=== PATIENT | female | born 1975 | race Hispanic/Latino ===

== ENCOUNTER 2018-05-19 19:54 | Emergency (ER) | payer OTHER ==
[2018-05-19] MEDS ORDERED: ONDANSETRON 4 MG/2 ML VIAL ONE (21:08)
[2018-05-19] MEDS ORDERED: MORPHINE 4 MG/ML SYR ONE ×2 (21:08→23:56)
[2018-05-19] MEDS ORDERED: NA CHLORIDE 0.9% 1,000 ML ONE (21:08)
[2018-05-19 21:33] LABS: Albumin 3.5 g/dL (3.4-5.0); Bilirubin Direct 2.1 mg/dL (0-0.2); Bilirubin Total 3.1 mg/dL (0.2-1.0); Potassium 3.7 mmol/L (3.5-5.1); Protein, Total 6.8 g/dL (6.4-8.2)
[2018-05-19 21:37] LABS: Absolute Lymphocytes (CBC) 0.4 K/uL (0.7-4.9); Absolute Monocytes 0.4 K/uL (0.1-1.3); Absolute Neutrophil 9.2 K/uL (1.8-8.0); Basophils % 0.3 % (0-1.3); Eosinophils % 0.2 % (0-4.4); Hematocrit 35.7 % (36.0-45.0); Lymphocytes % 4.4 % (15.3-44.8); MPV 8.8 fL (7.6-11.3); Monocytes % 4.4 % (3.3-12.3); RBC Red Blood Cell Count 4.24 M/uL (3.86-4.86)
[2018-05-19 23:28] LABS: Blood Morphology Comment NOT SEEN (NOT SEEN); Platelet Estimate ADEQ
[2018-05-19 23:43] LABS: Urine Bacteria <20 /HPF (<20); Urine Culture Reflex Order NOT NEEDED; Urine RBC <5 /HPF (NONE SEEN)
[2018-05-19 23:55] LABS: Urine Blood NEGATIVE (NEG); Urine Glucose NEGATIVE (NEG); Urine Protein NEGATIVE (NEG); Urine pH 7.5 (5.0-7.0)
[2018-05-19] MEDS ORDERED: METRONIDAZOLE 500mg IVPB 500 MG/100 ML BAG IV ONE (23:56)
[2018-05-20] MEDS ORDERED: CEFTRIAXONE/SWI 1gm 1 GM/10 ML SYR ONE
--- NOTE | 2018-05-20 00:44 | EDPHYS ---
Physician Documentation [facility] Name: Bev Samuel Age: 43 yrs Sex: Female : 1975 Arrival Date: 05/19/2018 Time: 19:58 Bed 23 Private MD: ED Physician Nicholas Warren HPI: 05/19 23:58 This 43 yrs old Female presents to ER via Ambulatory with complaints of jr8 Abdominal Pain, Nausea/Vomiting. 23:58 The patient presents with abdominal pain in the upper abdomen. Onset: The jr8 symptoms/episode began/occurred acutely, yesterday, and became worse and became persistent. The symptoms do not radiate. Associated signs and symptoms: Pertinent positives: nausea. The symptoms are described as stabbing. Modifying factors: The symptoms are alleviated by nothing, the symptoms are aggravated by nothing. Severity of pain: At its worst the pain was moderate in the emergency department the pain is unchanged. The patient has not experienced similar symptoms in the past. The patient has not recently seen a physician. PROOFER: 20:20 LMP 05/01/2018 ch Historical: - Allergies: 20:20 No Known Allergies; ch - PMHx: 20:20 Ovarian cyst; ch - Immunization history:: Adult Immunizations up to date, Flu vaccine is not up to date. Patient has never been vaccinated. - Social history:: Smoking status: Patient uses tobacco products, smokes one-half pack cigarettes per day. - Ebola Screening: : Patient negative for fever greater than or equal to 101.5 degrees Fahrenheit, and additional compatible Ebola Virus Disease symptoms Patient denies exposure to infectious person Patient denies travel to an Ebola-affected area in the 21 days before illness onset No symptoms or risks identified at this time. ROS: 23:58 Eyes: Negative for injury, pain, redness, and discharge, ENT: Negative for injury, jr8 pain, and discharge, Neck: Negative for injury, pain, and swelling, Cardiovascular: Negative for chest pain, palpitations, and edema, Respiratory: Negative for shortness of breath, cough, wheezing, and pleuritic chest pain, Back: Negative for injury and pain, MS/Extremity: Negative for injury and deformity, Skin: Negative for injury, rash, and discoloration, Neuro: Negative for headache, weakness, numbness, tingling, and seizure. 23:58 Abdomen/GI: Positive for abdominal pain, nausea, Negative for vomiting, diarrhea, abdominal distension, anorexia, dysphagia, hematemesis, black/tarry stool, rectal pain, rectal bleeding, bowel incontinence, flatulence. Exam: 23:58 Eyes: Pupils equal round and reactive to light, extra-ocular motions intact. Lids and jr8 lashes normal. Conjunctiva and sclera are non-icteric and not injected. Cornea within normal limits. Periorbital areas with no swelling, redness, or edema. ENT: Nares patent. No nasal discharge, no septal abnormalities noted. Tympanic membranes are normal and external auditory canals are clear. Oropharynx with no redness, swelling, or masses, exudates, or evidence of obstruction, uvula midline. Mucous membranes moist. Neck: Trachea midline, no thyromegaly or masses palpated, and no cervical lymphadenopathy. Supple, full range of motion without nuchal rigidity, or vertebral point tenderness. No Meningismus. Cardiovascular: Regular rate and rhythm with a normal S1 and S2. No gallops, murmurs, or rubs. Normal PMI, no JVD. No pulse deficits. Respiratory: Lungs have equal breath sounds bilaterally, clear to auscultation and percussion. No rales, rhonchi or wheezes noted. No increased work of breathing, no retractions or nasal flaring. Back: No spinal tenderness. No costovertebral tenderness. Full range of motion. Skin: Warm, dry with normal turgor. Normal color with no rashes, no lesions, and no evidence of cellulitis. MS/ Extremity: Pulses equal, no cyanosis. Neurovascular intact. Full, normal range of motion. Neuro: Awake and alert, GCS 15, oriented to person, place, time, and situation. Cranial nerves II-XII grossly intact. Motor strength 5/5 in all extremities. Sensory grossly intact. Cerebellar exam normal. Normal gait. 23:58 Abdomen/GI: Inspection: abdomen appears normal, Bowel sounds: active, all quadrants, Palpation: soft, in all quadrants, mild abdominal tenderness, in the right lower quadrant, moderate abdominal tenderness, in the right upper quadrant, voluntary guarding, is elicited in the right upper quadrant, involuntary guarding, is not appreciated, no appreciated organomegaly, Indicators: McBurney's point is not tender, Ruiz's sign is positive, Rovsing's sign is negative, Liver: tenderness, that is mild. Vital Signs: 20:20 BP 113 / 76; Pulse 82; Resp 16; Temp 99.5; Pulse Ox 99% on R/A; Weight 68.04 kg; Height ch 5 ft. 8 in. (172.72 cm); Pain 10/10; 21:28 BP 102 / 48; Pulse 72; Resp 18; Pulse Ox 98% on R/A; Pain 10/10; ed1 23:09 BP 119 / 72; Pulse 69; Resp 20; Pulse Ox 99% on R/A; Pain 10/10; ed1 05/20 00:21 BP 93 / 53; Pulse 61; Resp 19; Pulse Ox 99% on R/A; Pain 6/10; ed1 01:23 BP 107 / 67; Pulse 62; Resp 18; Pulse Ox 100% on R/A; mg2 05/19 20:20 Body Mass Index 22.81 (68.04 kg, 172.72 cm) ch MDM: 05/19 20:38 Patient medically screened. jr8 05/20 00:38 Data reviewed: vital signs, nurses notes, lab test result(s), radiologic studies, CT jr8 scan, ultrasound. Data interpreted: Pulse oximetry: on room air is 99 %. Interpretation: normal. Counseling: I had a detailed discussion with the patient and/or guardian regarding: the historical points, exam findings, and any diagnostic results supporting the discharge/admit diagnosis, lab results, radiology results, the need for further work-up and treatment in the hospital, the need to transfer to another facility, [facility] does not immediately have the required specialist. ED course: Consulted Dr. Loco about case. Declined to have patient further evaluated here due to the hepatic elevation and no GI cert occupational therapy asst tonight or throughout the weekend . ED course: [facility] contacted to see if they would except patient for further evaluation for possible cholecystitis with elevated LFT's. Medicine and General Surgery were both consulted and accepted to see patient . 05/19 20:52 Order name: Basic Metabolic Panel; Complete Time: 21:40 jr8 05/19 20:52 Order name: CBC with Diff; Complete Time: 23:37 8 05/19 20:52 Order name: Creatinine for Radiology; Complete Time: 22:12 jr8 05/19 20:52 Order name: Hepatic Function; Complete Time: 21:40 [facility] 05/19 20:52 Order name: Lipase; Complete Time: 21:40 [facility] 05/19 20:52 Order name: Urine Microscopic Only; Complete Time: 23:53 [facility] 05/19 21:39 Order name: US Abdomen Limited [facility] 05/19 21:41 Order name: Manual Differential; Complete Time: 23:37 EDMS 05/19 22:12 Order name: CT Abd/Pelvis - W/Contrast [facility] 05/19 22:38 Order name: Urine Dipstick--Ancillary (enter results); Complete Time: 23:59 [facility] 05/19 22:38 Order name: Urine --Ancillary (enter results); Complete Time: 23:59 [facility] 05/19 20:52 Order name: IV Saline Lock; Complete Time: 21:04 [facility] 05/19 20:52 Order name: Labs collected and sent; Complete Time: 21:04 [facility] 05/19 20:52 Order name: Urine Test (obtain specimen); Complete Time: 21:04 [facility] 05/19 20:52 Order name: Urine Dipstick-Ancillary (obtain specimen); Complete Time: 21:04 [facility] Administered Medications: 05/19 21:03 Drug: NS 0.9% 1000 ml Route: IV; Rate: 1000 ml; Site: left antecubital; ed1 05/20 02:47 Follow up: Response: No adverse reaction; IV Status: Completed infusion mg2 05/19 21:03 Drug: morphine 4 mg Route: IVP; Site: left antecubital; ed1 21:29 Follow up: Response: No adverse reaction; Pain is unchanged, physician notified ed1 21:03 Drug: Zofran 4 mg Route: IVP; Site: left antecubital; ed1 21:29 Follow up: Response: No adverse reaction; Nausea unchanged ed1 23:50 Not Given (Other Intervention Used): Mefoxin 1 grams IVPB once over 30 mins; (mix in 50 ed1 mL NS) 23:50 Drug: Flagyl 500 mg Volume: 100 ml; Route: IVPB; Rate: 200 ml/hr; Infused Over: 30 ed1 mins; Site: left antecubital; 05/20 00:20 Follow up: Response: No adverse reaction; IV Status: Completed infusion ed1 05/19 23:50 Drug: morphine 4 mg Route: IVP; Site: left antecubital; ed1 05/20 00:15 Follow up: Response: No adverse reaction; Pain is decreased ed1 00:20 Drug: Rocephin 1 grams Route: IV; Rate: calculated rate; Site: left antecubital; ed1 01:01 Follow up: Response: No adverse reaction; IV Status: Completed infusion ed1 01:00 Drug: NS 0.9% 1000 ml Route: IV; Rate: 1000 ml; Site: left antecubital; ed1 01:50 Follow up: Response: No adverse reaction; IV Status: Completed infusion mg2 01:50 Drug: Zofran 4 mg Route: IVP; Site: left antecubital; mg2 02:43 Follow up: Response: No adverse reaction; Marked relief of symptoms mg2 02:59 Drug: morphine 4 mg Route: IVP; Site: left antecubital; mg2 02:59 Follow up: Response: No adverse reaction; administered prior to transfer mg2 Disposition: 07:10 Co-signature as Attending Physician, Nicholas Warren MD I agree with the assessment and tw4 plan of care. Disposition: 05/20/18 00:44 Transfer ordered to [facility]. Diagnosis are Cholecystitis, Abnormal results of liver function studies. - Reason for transfer: Higher level of care. - Accepting physician is Dr. Cuellar . - Condition is Stable. - Problem is new. - Symptoms are unchanged. Signatures: Dispatcher [employer] EDMS Connie Potts RN RN Kasia Torres RN RN ed1 Adama Tabares PA PA jr8 Nicholas Warren MD MD tw4 Bashir Dunaway RN RN mg2 Corrections: (The following items were deleted from the chart) 01:13 00:44 05/20/2018 00:44 Transfer ordered to [facility]. Diagnosis is jr8 Cholecystitis; Abnormal results of liver function studies. Reason for transfer: Higher level of care. Accepting physician is [facility]. Condition is Stable. Problem is new. Symptoms are unchanged. jr8 03:03 01:13 05/20/2018 00:44 Transfer ordered to [facility]. Diagnosis is mg2 Cholecystitis; Abnormal results of liver function studies. Reason for transfer: Higher level of care. Accepting physician is Dr. Cuellar . Condition is Stable. Problem is new. Symptoms are unchanged. jr8
--- NOTE | 2018-05-20 00:44 | ER ---
Nurse's Notes [facility] Name: Bev Samuel Age: 43 yrs Sex: Female : 1975 Arrival Date: 05/19/2018 Time: 19:58 Bed 23 [facility] MD: Diagnosis: Cholecystitis;Abnormal results of liver function studies Presentation: 05/19 20:19 Presenting complaint: states: abdominal pain, vomiting, nausea, started at 0300 ch today after having sex. since then it has been getting worse. she went drinking with her friends last night. today she seems nayeli loopy, she seemed overly drunk for only having a couple drinks last night, and doesn't seem right. Transition of care: patient was not received from another setting of care. Onset of symptoms was May 19, 2018 at 03:00. Risk Assessment: Do you want to hurt yourself or someone else? Patient reports no desire to harm self or others. Initial Sepsis Screen: Does the patient meet any 2 criteria? No. Patient's initial sepsis screen is negative. Does the patient have a suspected source of infection? No. Patient's initial sepsis screen is negative. Care prior to arrival: None. 20:19 Method Of Arrival: Ambulatory 20:19 Acuity: SCOT 3 ch [employer]PER[employer]OR: 20:20 LMP 05/01/2018 Historical: - Allergies: 20:20 No Known Allergies; ch - PMHx: 20:20 Ovarian cyst; ch - Immunization history:: Adult Immunizations up to date, Flu vaccine is not up to date. Patient has never been vaccinated. - Social history:: Smoking status: Patient uses tobacco products, smokes one-half pack cigarettes per day. - Ebola Screening: : Patient negative for fever greater than or equal to 101.5 degrees Fahrenheit, and additional compatible Ebola Virus Disease symptoms Patient denies exposure to infectious person Patient denies travel to an Ebola-affected area in the 21 days before illness onset No symptoms or risks identified at this time. Screenin:43 Abuse screen: Denies threats or abuse. Denies injuries from another. Nutritional ed1 screening: No deficits noted. Tuberculosis screening: No symptoms or risk factors identified. Fall Risk None identified. Assessment: 20:43 General: Appears uncomfortable, Behavior is uncooperative. Pain: Complains of pain in ed1 abdomen Pain does not radiate. Pain currently is 10 out of 10 on a pain scale. Quality of pain is described as stabbing, Pain began gradually, around 0300 today Is continuous. Neuro: Level of Consciousness is awake, alert, obeys commands, Oriented to person, place, time, situation. Cardiovascular: Denies chest pain, Heart tones S1 S2 present. Respiratory: Airway is patent Respiratory effort is even, unlabored, Respiratory pattern is regular, symmetrical, Breath sounds are clear bilaterally. GI: Abdomen is non-distended, Bowel sounds present X 4 quads. Abd is soft X 4 quads Abdomen is tender to palpation X 4 quads. Reports nausea, vomiting. : Reports pain starting after intercourse. EENT: No signs and/or symptoms were reported regarding the EENT system. Derm: Skin is intact, is healthy with good turgor, Skin is dry, Skin is normal, Skin temperature is warm. Musculoskeletal: Circulation, motion, and sensation intact. Range of motion: intact in all extremities. 21:28 Reassessment: No changes from previously documented assessment. Patient and/or family ed1 updated on plan of care and expected duration. Pain level reassessed. Patient is alert, oriented x 3, equal unlabored respirations, skin warm/dry/pink. Patient states symptoms have not improved. 23:09 Reassessment: Patient appears in no apparent distress at this time. No changes from ed1 previously documented assessment. Patient and/or family updated on plan of care and expected duration. Pain level reassessed. Patient is alert, oriented x 3, equal unlabored respirations, skin warm/dry/pink. Patient states symptoms have not improved. 05/20 00:15 Reassessment: Patient appears in no apparent distress at this time. Patient and/or ed1 family updated on plan of care and expected duration. Pain level reassessed. Patient is alert, oriented x 3, equal unlabored respirations, skin warm/dry/pink. Patient states feeling better. Patient states symptoms have improved. Vital Signs: 05/19 20:20 BP 113 / 76; Pulse 82; Resp 16; Temp 99.5; Pulse Ox 99% on R/A; Weight 68.04 kg; Height ch 5 ft. 8 in. (172.72 cm); Pain 10/10; 21:28 BP 102 / 48; Pulse 72; Resp 18; Pulse Ox 98% on R/A; Pain 10/10; ed1 23:09 BP 119 / 72; Pulse 69; Resp 20; Pulse Ox 99% on R/A; Pain 10/10; ed1 03/23 00:21 BP 93 / 53; Pulse 61; Resp 19; Pulse Ox 99% on R/A; Pain 6/10; ed1 01:23 BP 107 / 67; Pulse 62; Resp 18; Pulse Ox 100% on R/A; mg2 05/19 20:20 Body Mass Index 22.81 (68.04 kg, 172.72 cm) ED Course: 05/19 19:58 Patient arrived in ED. es 20:20 Triage completed. 20:20 Arm band placed on left wrist. Patient placed in an exam room, on a stretcher. 20:38 Adama Tabares PA is PHCP. [facility] 20:38 Nicholas Warren MD is Attending Physician. [facility] 20:38 Kasia Torres RN is Primary Nurse. ed1 20:43 Patient has correct armband on for positive identification. Bed in low position. Call ed1 light in reach. Side rails up X2. Adult w/ patient. Pulse ox on. NIBP on. 20:46 Awaiting ED provider evaluation. ed1 21:15 Initial lab(s) drawn, by me, sent to lab. Urine collected: clean catch specimen, jumana lt1 colored. Inserted saline lock: 20 gauge in left antecubital area, using aseptic technique. 21:40 Notified Nurse Practitioner and/or Physician [place] [employer] Member of a critical lab result(s), AST ed1 419. 22:02 Ultrasound completed. Patient tolerated poorly. Patient moved back from ultrasound. cy 22:03 US Abdomen Limited In Process Unspecified. EDMS 22:[address] vm2 22:47 CT completed. Patient tolerated procedure well. Patient moved back from CT. vm2 22:53 CT Abd/Pelvis - W/Contrast In Process Unspecified. EDMS 03/ 00:15 Assisted to bathroom. ed1 01:14 Primary Nurse role handed off by Kasia Torres, RN ed1 01:23 No provider procedures requiring assistance completed. Patient transferred, IV remains mg2 in place. Administered Medications: 05/19 21:03 Drug: NS 0.9% 1000 ml Route: IV; Rate: 1000 ml; Site: left antecubital; ed1 05/20 02:47 Follow up: Response: No adverse reaction; IV Status: Completed infusion mg2 05/19 21:03 Drug: morphine 4 mg Route: IVP; Site: left antecubital; ed1 21:29 Follow up: Response: No adverse reaction; Pain is unchanged, physician notified ed1 21:03 Drug: Zofran 4 mg Route: IVP; Site: left antecubital; ed1 21:29 Follow up: Response: No adverse reaction; Nausea unchanged ed1 23:50 Not Given (Other Intervention Used): Mefoxin 1 grams IVPB once over 30 mins; (mix in 50 ed1 mL NS) 23:50 Drug: Flagyl 500 mg Volume: 100 ml; Route: IVPB; Rate: 200 ml/hr; Infused Over: 30 ed1 mins; Site: left antecubital; 05/20 00:20 Follow up: Response: No adverse reaction; IV Status: Completed infusion ed1 05/19 23:50 Drug: morphine 4 mg Route: IVP; Site: left antecubital; ed1 05/20 00:15 Follow up: Response: No adverse reaction; Pain is decreased ed1 00:20 Drug: Rocephin 1 grams Route: IV; Rate: calculated rate; Site: left antecubital; ed1 01:01 Follow up: Response: No adverse reaction; IV Status: Completed infusion ed1 01:00 Drug: NS 0.9% 1000 ml Route: IV; Rate: 1000 ml; Site: left antecubital; ed1 01:50 Follow up: Response: No adverse reaction; IV Status: Completed infusion mg2 01:50 Drug: Zofran 4 mg Route: IVP; Site: left antecubital; mg2 02:43 Follow up: Response: No adverse reaction; Marked relief of symptoms mg2 02:59 Drug: morphine 4 mg Route: IVP; Site: left antecubital; mg2 02:59 Follow up: Response: No adverse reaction; administered prior to transfer mg2 Intake: Outcome: 00:44 ER care complete, transfer ordered by MD. bauer 02:59 Transferred by ground EMS to [facility], Transfer form completed. mg2 02:59 Condition: stable 02:59 Instructed on the need for transfer, Demonstrated understanding of instructions. 03:03 Patient left the ED. mg2 Signatures: Dispatcher [employer] Connie Eason, RN RN ch Lucrecia Barnett Erika, RN RN ed1 Adama Tabares PA PA [facility] Greta Baires [facility] Varsha Andrews Michele, RN RN mg2 Mara Smith lt1 Corrections: (The following items were deleted from the chart) 05/19 20:23 20:19 Presenting complaint: states: abdominal pain, vomiting, nausea, started ch at 0300 today, getting worse. ch
[2018-05-20] MEDS ORDERED: NA CHLORIDE 0.9% 1,000 ML ONE (01:09)
[2018-05-20] MEDS ORDERED: ONDANSETRON 4 MG/2 ML VIAL ONE (01:55)
[2018-05-20] MEDS ORDERED: MORPHINE 4 MG/ML SYR ONE (03:05)
--- NOTE | 2018-05-20 09:10 | RAD REPORT ---
EXAM DESCRIPTION: US - Abdomen Exam Limited - 05/19/2018 10:01 pm CLINICAL HISTORY: Abdominal pain. COMPARISON: None. FINDINGS: The gallbladder is contracted with a mildly thickened wall. A gallstone is not seen The biliary tree is normal caliber. IMPRESSION: Contracted gallbladder with a mildly thickened wall. This can be a normal finding in a p atient not NPO. Chronic cholecystitis is another consideration
--- NOTE | 2018-05-22 11:00 | RAD REPORT ---
EXAM DESCRIPTION: CT - Abdomen Pelvis W Contrast - 05/19/2018 11:31 pm TECHNIQUE: Axial scans through the abdomen and pelvis with intravenous contrast including multiplana r computer reformations. Multiphase axial data sets. Total Dose Length Product: 932. This exam was pe rformed according to our departmental dose-optimization program, which includes automated exposure co ntrol, adjustment of the mA and/or kV according to patient size and/or use of iterative reconstructio n technique. Comparison studies: None. CLINICAL HISTORY: Iv only;Abd pain. FINDINGS: Liver: Size: Mildly enlarged, 18 cm. Parenchyma: No mass. Vasculature: Portal and hepatic veins: Normal. Spleen: Normal. Gallbladder: Contracted. Bile ducts: No biliary dilatation. Pancreas: normal. Adrenal glands: Normal. Kidneys: Normal. Bladder: Normal. Uterus: Position: Anteverted. Adnexa: Bilateral follicle cysts. Largest on the right measures 3 cm. Largest on the left measures 1. 7 cm. Breast practices recommendations: No follow-up imaging is recommended. Intestinal Tract: Stomach and duodenum: Unremarkable Small bowel: There is no small bowel dilatation. Large bowel: No large intestinal dilatation. Moderate colonic stool burden of. Appendix: Normal. Mesentery and Omentum: Normal. Retroperitoneum: Normal. Vasculature: Aorta: Normal. Iliac arteries: Normal. Free fluid: None. Musculoskeletal: Musculature, abdominal wall and soft tissues: Unremarkable. Skeletal structures: Degenerative disc disease including moderate lumbosacral narrowing. Lung bases: Clear. IMPRESSION: 1. Ovarian follicle cysts. 2. Nonspecific intestinal abnormality. 3. Contracted gallbladder.. Electronically signed by: Edgardo Owusu MD 05/19/2018 11:12 PM CDT Due to temporary technical issues with the PACS/Fluency reporting system, reports are being signed by the in house radiologist as a courtesy to ensure prompt reporting. The interpreting radiologist is f ully responsible for the content of the report.
== END 2018-05-20 03:03 | disposition short-term general hospital (02) ==
LOC: ER 19:54
DX: K81.9 Cholecystitis, unspecified (principal); R94.5 Abnormal results of liver function studies
CPT/HCPCS: 36415; 74177; 76705; 80048; 80076; 81003; 81015; 81025; 83690; 85025; 96361; 96365; 96367; 96375; 99285; J0696; J2405; J7030; Q9967